=== PATIENT | female | born 1990 | race Caucasian/White ===

== ENCOUNTER → 2021-07-30 | Outpatient (CLI) | payer OTHER | LOC: M WHC 11:25 | PROVIDERS: ATTEND Obstetrics & Gynecology | DX: O30.033 Twin pregnancy, monochorionic/diamniotic, third trimester (principal); Z3A.31 31 weeks gestation of pregnancy ==

== ENCOUNTER → 2021-08-12 | Outpatient (CLI) | payer OTHER | LOC: M RAD 13:30 | PROVIDERS: ATTEND Advanced Practice Midwife | DX: O30.033 Twin pregnancy, monochorionic/diamniotic, third trimester (principal); Z3A.32 32 weeks gestation of pregnancy ==

== ENCOUNTER → 2021-08-15 | Outpatient (CLI) | payer OTHER | LOC: M WHC 12:03 | PROVIDERS: ATTEND Specialist | DX: O30.033 Twin pregnancy, monochorionic/diamniotic, third trimester (principal); Z3A.33 33 weeks gestation of pregnancy ==

== ENCOUNTER → 2021-08-19 | Outpatient (CLI) | payer OTHER | LOC: M WHC 14:13 | PROVIDERS: ATTEND Specialist | DX: O30.033 Twin pregnancy, monochorionic/diamniotic, third trimester (principal) ==

== ENCOUNTER → 2021-08-27 | Outpatient (CLI) | payer OTHER | LOC: M WHC 14:46 | PROVIDERS: ATTEND Specialist | DX: O30.033 Twin pregnancy, monochorionic/diamniotic, third trimester (principal); Z3A.34 34 weeks gestation of pregnancy ==

== ENCOUNTER → 2021-08-30 | Outpatient (REF) | payer OTHER | LOC: M SFHCWAGY 12:50 | PROVIDERS: ATTEND Advanced Practice Midwife | DX: Z36.85 Encounter for antenatal screening for Streptococcus B (principal) ==

== ENCOUNTER → 2021-09-02 | Outpatient (CLI) | payer OTHER | LOC: M WHC 13:07 | PROVIDERS: ATTEND Specialist | DX: Z36.3 Encounter for antenatal screening for malformations (principal); O30.033 Twin pregnancy, monochorionic/diamniotic, third trimester; Z3A.35 35 weeks gestation of pregnancy ==

== ENCOUNTER → 2021-09-09 | Outpatient (CLI) | payer OTHER ==
[~2021-09-09] MED LIST: ACET325C5 PO; COLA100C5 PO; FERR325T3 PO; PRENTAB9 PO; VITA500C24 PO
== END ==
LOC: M RAD 13:54
PROVIDERS: ATTEND Specialist
DX: O30.033 Twin pregnancy, monochorionic/diamniotic, third trimester (principal); Z3A.00 Weeks of gestation of pregnancy not specified

== ENCOUNTER 2021-09-10 18:07 | Inpatient (IN) | payer OTHER ==
[~2021-09-10] VITALS: Ht 162.6 cm; Wt 91.6 kg
[2021-09-10 18:44] VITALS: BP 137/78
[2021-09-10] MEDS ORDERED: PRENTAB9 PO (18:49)
[2021-09-10] MEDS ORDERED: miSOPROStol 50MCG 1/2 TABLET SL SCH (18:50)
[2021-09-10 19:15] LABS: HEMATOCRIT 31.9 % (36.0-47.0); MEAN CORPUSCULAR HEMOGLOBIN 25.6 pg (27.0-33.0); MEAN CORPUSCULAR HGB CONC 31.3 g/dl (32.0-36.5); MEAN CORPUSCULAR VOLUME 81.6 fl (80.0-96.0); PLATELET COUNT, AUTOMATED 235 10^3/uL (150-450); RED BLOOD COUNT 3.91 10^6/uL (4.00-5.40); WHITE BLOOD COUNT 10.6 10^3/uL (4.0-10.0)
[2021-09-10] MEDS ORDERED: ACET325C5 PO (19:22)
[2021-09-10] MEDS ORDERED: FERR325T3 PO (19:22)
[2021-09-10] MEDS ORDERED: VITA500C24 PO (19:22)
[2021-09-10] MEDS ORDERED: COLA100C5 PO (19:22)
[2021-09-10] MEDS ORDERED: HOME MED LIST COMPLETE! XX SCH (19:25)
[2021-09-10 20:20] VITALS: BP 128/69
[2021-09-10] MEDS ORDERED: PENICILLIN G POTASSIUM IV 5 MU in D5W MINI-BAG PLUS 100 ML IV STA (21:09)
[2021-09-10] MEDS ORDERED: FENTANYL 2MCG/ML ROPIVACAINE 0.2% IN 0.9% NACL 100ML IVBAG As Ordered ONE (23:29)
[2021-09-11] VITALS (25 sets, daily range): BP systolic 108–158; BP diastolic 51–88
[2021-09-11] MEDS ORDERED: PENICILLIN G POTASSIUM IV 2.5 MU in IV 1 EA IV SCH ×2 (00:30→01:30)
[2021-09-11] MEDS ORDERED: LR 500 ML IV PRN (00:45)
[2021-09-11] MEDS ORDERED: ONDANSETRON 4MG 2ML VIAL IV PRN (00:45)
[2021-09-11] MEDS ORDERED: EPIDURAL/PCA KEYS XX PRN (00:45)
[2021-09-11] MEDS ORDERED: diphenhydrAMINE 50MG/ML VIAL (J1200) IV PRN (00:45)
[2021-09-11] MEDS ORDERED: FENTANYL/ROPIVACAINE/NACL BAG 100 ML EPIDURAL SCH (00:45)
[2021-09-11] MEDS ORDERED: ePHEDrine SULFATE 25 MG/5 ML(5MG/ML) SYRINGE IVP PRN (00:45)
[2021-09-11] MEDS ORDERED: NALOXONE INJ 0.4MG/1ML VIAL (J2310 PER 1MG) IV PRN (00:45)
[2021-09-11] MEDS ORDERED: OXYTOCIN DRIP 30 UNITS in IV 1 EA IV SCH (03:30)
[2021-09-11] MEDS ORDERED: OXYTOCIN 30 UNITS IN 0.9% NaCl 500ML IV BAG (J2590) As Ordered ONE (05:54)
[2021-09-11] MEDS ORDERED: ACETAMINOPHEN 500 MG TAB PO PRN (07:40)
[2021-09-11] MEDS ORDERED: IBUPROFEN 800 MG TAB PO PRN (07:40)
[2021-09-11] MEDS ORDERED: OXYTOCIN DRIP 30 UNITS in IV 1 EA IV ONE (07:40)
[2021-09-11] MEDS ORDERED: ACETAMINOPHEN TAB 650MG DOSE (2X325MG) PO PRN (07:40)
[2021-09-11] MEDS ORDERED: IBUPROFEN 600MG TAB PO PRN (07:40)
[2021-09-11] MEDS ORDERED: DIBUCAINE 1% OINTMENT 30GM TOP PRN (07:40)
[2021-09-11] MEDS ORDERED: RHOGAM 300 MCG (1500 IU) INJ (J2790) IM SCH (07:40)
[2021-09-11] MEDS ORDERED: METHYLERGONOVINE MALEATE 0.2 MG TAB PO PRN (07:40)
[2021-09-11] MEDS ORDERED: DOCUSATE SODIUM 100MG CAPSULE PO PRN (07:40)
[2021-09-11] MEDS: PRENATAL VITAMINS CHEWABLE TABLET PO SCH (09:50)
[2021-09-12 06:00] VITALS: BP 102/52
[2021-09-12] MEDS: PRENATAL VITAMINS CHEWABLE TABLET PO SCH (08:01)
[2021-09-12 18:00] VITALS: BP 110/58
[2021-09-13 06:00] VITALS: BP 106/51
[2021-09-13] MEDS: PRENATAL VITAMINS CHEWABLE TABLET PO SCH (08:02)
[2021-09-13] MEDS ORDERED: MEASLES,MUMPS,RUBELLA VACCINE INJ (MMR-II) (90707) SC.IMMUN ONE (09:00)
[2021-09-13] MEDS ORDERED: ACET-683 PO (10:48)
[2021-09-13] MEDS ORDERED: IBUP80TA PO (10:48)
== END 2021-09-13 11:24 | disposition home or self-care (01) | DRG 807 ==
LOC: M LDI 18:07 → M OBS 09-11 10:49
PROVIDERS: ADMIT Specialist; ATTEND Specialist
PROC: 3E0P7GC Introduction of Other Therapeutic Substance into Female Reproductive, Via Natural or Artificial Opening (ICD-10-PCS; 2021-09-10)
PROC: 10E0XZZ Delivery of Products of Conception, External Approach (ICD-10-PCS; principal; 2021-09-11)
PROC: 10907ZC Drainage of Amniotic Fluid, Therapeutic from Products of Conception, Via Natural or Artificial Opening (ICD-10-PCS; 2021-09-11)
DX: O30.033 Twin pregnancy, monochorionic/diamniotic, third trimester (principal); Z37.2 Twins, both liveborn; Z3A.37 37 weeks gestation of pregnancy; O99.824 Streptococcus B carrier state complicating childbirth